=== PATIENT | male | born 1945 | race Caucasian/White ===

== ENCOUNTER 2016-10-03 12:56 | Day surgery (SDC) | payer MEDICARE, BC ==
[~2016-10-03] VITALS: Ht 172.7 cm; Wt 79.0 kg
[2016-10-03] VITALS (13 sets, daily range): BP systolic 142–189; BP diastolic 66–90; PULSE 68–90; RESP 13–19; Ht 172.7 cm; Wt 79.0 kg
[~2016-10-03 12:56] MED LIST: CEFAZOLIN 2 GM/50 ML (PMX) 50 ML IVPB SCH; DEXAMETHASONE 4 MG/ML 1 ML INJ ONE; ONDANSETRON 4 MG INJ ONE; SOD CHLORIDE 0.9% 1,000 ML IV SCH
[2016-10-03] MEDS ORDERED: LOSA100T47 PO (15:23)
[2016-10-03] MEDS ORDERED: PROPOFOL 20 ML ONE (16:55)
[2016-10-03] MEDS ORDERED: LIDOCAINE 2% (SDV) 5 ML INJ ONE (16:56)
[2016-10-03] MEDS ORDERED: ROCURONIUM 50 MG INJ ONE (16:56)
[2016-10-03] MEDS ORDERED: ACETAMINOPHEN 1000MG/100ML IV 100 ML ONE (16:58)
[2016-10-03] MEDS ORDERED: POLYMYXIN/BACITRACIN 1L IRRIG ONE (17:02)
[2016-10-03] MEDS ORDERED: MEPERIDINE 25 MG INJ IV PRN (17:30)
[2016-10-03] MEDS ORDERED: LABETALOL HCL 20MG INJ IV PRN (17:30)
[2016-10-03] MEDS ORDERED: EPHEDrine SULFATE 50 MG/5 ML SYG IV PRN (17:30)
[2016-10-03] MEDS ORDERED: FENTAnyl 50 MCG/ML VIAL IV PRN ×3 (17:30)
[2016-10-03] MEDS ORDERED: ONDANSETRON 4 MG INJ IV PRN (17:30)
[2016-10-03] MEDS ORDERED: hydrALAzine 20 MG INJ IV PRN (17:30)
[2016-10-03] MEDS ORDERED: HYDROmorphONE (0.2 MG/ML) 10ML SYG IV PRN ×3 (17:30)
[2016-10-03] MEDS ORDERED: OXYCODONE/ACETAMINOPHEN (5/325) TAB PO PRN ×2 (17:30)
[2016-10-03] MEDS ORDERED: BUPIVACAINE 0.5%/EPI (SDV) 30 ML INJ ONE (17:50)
--- NOTE | 2016-10-03 19:49 | OPR ---
DATE OF OPERATION: 10/03/2016 PREOPERATIVE DIAGNOSIS: Incarcerated right inguinal hernia. POSTOPERATIVE DIAGNOSIS: Incarcerated right inguinal hernia. OPERATION PERFORMED: Repair of right inguinal hernia with mesh. ANESTHESIA: General. ANESTHESIOLOGIST: ____ MD Shara SURGEON: Korey Wu MD SALES PROJECT ENGINEER: None. INDICATIONS FOR PROCEDURE: The patient is a 71-year-old male, presented with a longstanding incarce rated right inguinal hernia. He was counseled as to the risks versus benefits of repair. He consen larry and was scheduled for surgery. DESCRIPTION OF PROCEDURE: The patient was brought to the operating theater, placed under general an esthesia. The right groin was shaved, prepped and draped in usual sterile fashion. Approximately a 5 cm incision was made in the right groin, transversing the approximate locations of the internal a nd external inguinal rings. Subcutaneous tissue was dissected with cautery down to the aponeurosis of the external oblique. The aponeurosis was incised in the direction of the fibers through the ext ernal ring. With blunt dissection, medial and lateral flaps were developed. The ilioinguinal and i liohypogastric nerves were identified and kept out of harm's way. A very large direct hernia sac wa s then identified protruding through the floor of the inguinal canal. The right spermatic cord was elevated off of the right pubic tubercle, [place] drain was placed around it, and the large hernia s ac was dissected off of the cord structures down to the base of the internal ring. The sac was manu ally reduced and held in reduction with a sponge instrument. An onlay mesh patch was then cut to si ze, laid over the inguinal floor and sutured laterally to the inguinal ligaments with a running 2-0 Prolene suture. Small slot was cut on the lateral edge to facilitate cord ____. Additional portion of the mesh above the cord was then also sutured with a running 2-0 Prolene suture. The medial fransisca e was then sutured with a running 2-0 Prolene suture to the abdominal wall fascia. At this point, a n ilioinguinal and iliohypogastric nerve block was performed with 0.5% Marcaine local anesthetic. T he wound was irrigated. Minimal bleeding was controlled with cautery. The right testicle was palpa larry and pulled back into its normal anatomic location within the scrotal sac. The aponeurosis of th e external oblique was then reapproximated with a 4-0 Vicryl suture in running fashion. The subcuta neous tissue was irrigated with Betadine, and the skin was reapproximated with skin bear. The pa tient tolerated procedure well. The estimated blood loss was 20 mL. There were no complications, a nd the patient was transported in stable condition to the recovery room. Dictated By: KOREY AREVALO/RIGOBERTO Conf#: [id number] DID#: [id number]
== END 2016-10-03 19:27 | disposition home or self-care (01) ==
LOC: SDS 12:56
PROVIDERS: ATTEND Surgery Surgical Oncology
DX: K40.30 Unilateral inguinal hernia, with obstruction, without gangrene, not specified as recurrent (principal); I10 Essential (primary) hypertension
CPT/HCPCS: 49507; C1781; J0131; J0360; J1100; J1170; J2405; J3010